=== PATIENT | female | born 1995 | race Caucasian/White ===

== ENCOUNTER → 2023-08-09 18:27 | Outpatient (REF) | payer BC, SELFPAY | LOC: MRI 18:27 | PROVIDERS: ATTENDING PHYSICIAN Family Medicine | DX: D35.2 Benign neoplasm of pituitary gland (principal) | CPT/HCPCS: 70553; A9575 ==

== ENCOUNTER → 2023-10-26 13:40 | Outpatient (REF) | payer BC, SELFPAY | LOC: HWRAD 13:40 | PROVIDERS: ATTENDING PHYSICIAN Nurse Practitioner Family; FAMILY PHYSICIAN Family Medicine | DX: R10.2 Pelvic and perineal pain (principal); R14.0 Abdominal distension (gaseous) | CPT/HCPCS: 76830; 76856 ==